=== PATIENT | male | born 1980 | race Caucasian/White ===

== ENCOUNTER 2020-08-29 18:27 | Emergency (ER) | payer OTHER ==
[2020-08-29] MEDS ORDERED: EPIPEN0.3 MG/0.3 IM ×2 (19:45→19:46)
== END 2020-08-29 21:37 | disposition home or self-care (01) ==
LOC: FER 18:27
DX: T63.441A Toxic effect of venom of bees, accidental (unintentional), initial encounter (principal); R22.0 Localized swelling, mass and lump, head; F17.200 Nicotine dependence, unspecified, uncomplicated
CPT/HCPCS: J1200; J2930